=== PATIENT | male | born 1995 | race Caucasian/White ===

== ENCOUNTER 2016-08-02 08:15 | Outpatient (RCR) | payer OTHER | END 2016-09-05 | disposition home or self-care (01) | LOC: WOUNDCARE 08:15 | PROVIDERS: ATTEND Internal Medicine | DX: L05.91 Pilonidal cyst without abscess (principal) | CPT/HCPCS: 11042; 87070; 87075; 87077; 87186; 87205; 99202; 99213 ==

== ENCOUNTER 2016-12-12 02:00 | Outpatient (RCR) | payer BC, OTHER | END 2016-12-12 16:00 | disposition home or self-care (01) | LOC: WOUNDCARE 02:00 | PROVIDERS: ATTEND Surgery | DX: L05.91 Pilonidal cyst without abscess (principal); L98.492 Non-pressure chronic ulcer of skin of other sites with fat layer exposed | CPT/HCPCS: 99213 ==